=== PATIENT | male | born 1995 | race Hispanic/Latino ===

== ENCOUNTER → 2017-04-20 | Outpatient (CLI) | payer OTHER ==
--- NOTE | 2017-04-20 17:02 | REP ---
Right femur four views : There is no fracture or dislocation. Mineralization and joint spaces are normal. There are no calcifications or foreign bodies. Impression: Negative right femur . Signed by Ezra Nava MD 04/20/2017 04:54 P
== END ==
LOC: M LRY 16:30
PROVIDERS: ATTEND Nurse Practitioner Family
DX: M79.604 Pain in right leg (principal)
CPT/HCPCS: 73552; G0463